=== PATIENT | male | born 1960 | race Caucasian/White ===

== ENCOUNTER 2023-03-06 06:31 | Day surgery (SDC) | payer BC ==
[~2023-03-06 06:31] MED LIST: Lactated Ringers 1,000 ML IV SCH
[2023-03-06] MEDS ORDERED: Bupivacaine 0.5% 30 ML SDV ONE (06:39)
[2023-03-06] MEDS ORDERED: Lidocaine 2% 5 ML SDV ONE (06:40)
[2023-03-06] MEDS ORDERED: Water For Injection, Sterile 20 ML ONE (06:45)
[2023-03-06] MEDS ORDERED: Ondansetron 4 MG/2 ML SDV IVPUSH PRN (07:06)
[2023-03-06] MEDS ORDERED: Morphine 2 MG/ML SYRINGE IVPUSH PRN (07:06)
[2023-03-06] MEDS ORDERED: Albuterol 0.083% 2.5 MG/3 ML Neb Soln NEB PRN (07:06)
[2023-03-06] MEDS ORDERED: fentaNYL 50 MCG/ML SDV IVPUSH PRN (07:06)
[2023-03-06] MEDS ORDERED: droPERidol 5 MG/2 ML SDV IVPUSH PRN (07:06)
[2023-03-06] MEDS ORDERED: Metoclopramide 10 MG/2 ML SDV IVPUSH PRN (07:06)
[2023-03-06] MEDS ORDERED: HYDROmorphone 1 MG/ML Syringe IVPUSH PRN (07:06)
[2023-03-06] MEDS ORDERED: Naloxone 0.4 MG/ML SDV IVPUSH PRN (07:06)
[2023-03-06] MEDS ORDERED: Propofol 200 MG/20 ML SDV ONE (07:15)
[2023-03-06] MEDS ORDERED: Bupivacaine 0.5%/EPINEPHrine 1:200,000 30 ML SDV ONE (07:29)
[2023-03-06] MEDS ORDERED: EPINEPHrine 1 MG/1 ML Amp ONE (07:29)
[2023-03-06] MEDS ORDERED: ceFAZolin 2 GM in Sodium Chloride 0.9% 50 ML IV ONE (08:00)
[2023-03-06] MEDS ORDERED: fentaNYL 250 MCG/5 ML SDV ONE (08:23)
[2023-03-06] MEDS ORDERED: Phenylephrine HCl 0.5 MG/5 ML AMP ONE (09:25)
[2023-03-06] MEDS ORDERED: Dexamethasone 4 MG/ML 5 ML MDV ONE (09:25)
[2023-03-06] MEDS ORDERED: ceFAZolin 2 GM Vial ONE (09:25)
[2023-03-06] MEDS ORDERED: Ondansetron 4 MG/2 ML SDV ONE (09:25)
[2023-03-06] MEDS ORDERED: Sugammadex Sodium 200 MG/2 ML VIAL ONE (09:25)
[2023-03-06] MEDS ORDERED: ePHEDrine 50 MG/ML SDV ONE (09:25)
[2023-03-06] MEDS ORDERED: Glycopyrrolate 0.2 MG/ML SDV ONE (09:25)
[2023-03-06] MEDS ORDERED: Rocuronium Bromide 50 MG/5 ML Syringe ONE (09:25)
== END 2023-03-06 11:18 | disposition home or self-care (01) ==
LOC: MW.SDS 06:31
PROVIDERS: ATTEND Orthopaedic Surgery
DX: M75.111 Incomplete rotator cuff tear or rupture of right shoulder, not specified as traumatic (principal); M24.111 Other articular cartilage disorders, right shoulder; S46.111A Strain of muscle, fascia and tendon of long head of biceps, right arm, initial encounter; S43.401A Unspecified sprain of right shoulder joint, initial encounter; E78.00 Pure hypercholesterolemia, unspecified; I10 Essential (primary) hypertension; F41.9 Anxiety disorder, unspecified; E66.9 Obesity, unspecified; Z79.899 Other long term (current) drug therapy
CPT/HCPCS: 29826; 29827; 64415; J0131; J0171; J0690; J1100; J2371; J2405; J2704; J3010; J3490; J7120